=== PATIENT | male | born 1945 | race Hispanic/Latino ===

== ENCOUNTER 2018-10-02 17:51 | Emergency (ER) | payer MEDICARE ==
[~2018-10-02] VITALS: Ht 175.3 cm; Wt 87.1 kg
[2018-10-02] MEDS ORDERED: IBUPROFEN 600 MG TAB PO STA (18:33)
[2018-10-02] MEDS ORDERED: SODIUM CHLORIDE 0.9% 1000ML 1,000 ML IV ONE (19:15)
[2018-10-02] MEDS ORDERED: ACETAMINOPHEN 325 MG TAB PO ONE (20:15)
--- NOTE | 2018-10-02 20:46 | Diagnostic Imaging Report ---
EXAMINATION: CXR 1 [facility] COMPARISON: Chest x-ray 09/03/2011 INDICATION: Body aches, fever ^[id number] ^[id number] DISCUSSION: Frontal view of the chest obtained at 1918 hours. HEART AND MEDIASTINUM: The cardiomediastinal silhouette is unremarkable. There are calcified right hilar lymph nodes. LINES: None. LUNGS: The lungs are diffusely hyperinflated. No infiltrates. Mild reticulation in the base of the right lung. Calcified granuloma in the right midlung field measures 3 mm and in the base of the left lung measuring 3 mm. Calcified granuloma in the left lung measures 4 mm. These are stable. PLEURA: Thickening of the pleura in the right lateral costophrenic angle has increased. No pleural effusion or pneumothorax. BONES AND SOFT TISSUES: No focal osseous lesion. There is a stable metallic density over the lateral right upper lung field, likely in the soft tissues. IMPRESSION: Thickening of the pleura in the right lateral costophrenic angle with associated reticulation, suggestive of fibrosis. Recommend further characterization with CT of the chest on an outpatient basis. Signed by: Dr. Deanna Cantu MD on 10/02/2018 8:43 PM
[2018-10-02 21:12] VITALS: BP 119/80
== END 2018-10-02 21:21 | disposition home or self-care (01) ==
LOC: FSED 17:51
DX: R50.9 Fever, unspecified (principal); R05 Cough; J15.9 Unspecified bacterial pneumonia
CPT/HCPCS: 71045; 80053; 81003; 85025; 87400; 99284; J7030

== ENCOUNTER 2020-12-07 10:23 | Emergency (ER) | payer MEDICARE ==
[~2020-12-07] VITALS: Ht 175.3 cm; Wt 83.7 kg
[2020-12-07] MEDS ORDERED: PLAVIX75 MG PO (10:45)
[2020-12-07] MEDS ORDERED: ASPIRIN EC81 MG PO (10:45)
[2020-12-07] MEDS ORDERED: ATORVASTATIN CA20 MG PO (10:45)
[2020-12-07] MEDS ORDERED: METOPROLOL TART25 MG PO (10:45)
[2020-12-07] MEDS ORDERED: AZITHROMYCIN 500MG/NS 250 ML 250 ML IV ONE (10:55)
[2020-12-07] MEDS ORDERED: SODIUM CHLORIDE 0.9% 1000ML 1,000 ML IV STA (10:55)
[2020-12-07] MEDS ORDERED: DEXAMETHASONE SOD PHOS 10 MG/1 ML VIAL IV ONE (11:00)
[2020-12-07] MEDS ORDERED: ONDANSETRON HCL 4 MG ORAL DISINTEGRATING TAB ONE (11:08)
[2020-12-07] MEDS ORDERED: SODIUM CHLORIDE 0.9% 1000ML 1,000 ML ONE (11:08)
[2020-12-07] MEDS ORDERED: DEXAMETHASONE SOD PHOS INJ 4 MG/ML VIAL ONE (11:08)
[2020-12-07] MEDS ORDERED: ONDANSETRON HCL 4 MG ORAL DISINTEGRATING TAB PO ONE (11:22)
[2020-12-07] MEDS ORDERED: ACETAMINOPHEN 325 MG TAB PO ONE (12:48)
[2020-12-07] MEDS ORDERED: VENTOLIN HFA18 GM INH (12:54)
[2020-12-07] MEDS ORDERED: AZITHROMYCIN250 MG PO (12:54)
[2020-12-07] MEDS ORDERED: PREDNISONE20 MG PO (12:54)
[2020-12-07] MEDS ORDERED: ACETAMINOPHEN 325 MG TAB ONE (12:58)
[2020-12-07 13:12] VITALS: BP 117/62
== END 2020-12-07 13:19 | disposition home or self-care (01) ==
LOC: FSED 10:38
DX: J40 Bronchitis, not specified as acute or chronic (principal); R00.0 Tachycardia, unspecified; R51.9 Headache, unspecified; R07.0 Pain in throat; I10 Essential (primary) hypertension; E78.5 Hyperlipidemia, unspecified; K80.20 Calculus of gallbladder without cholecystitis without obstruction; Z79.02 Long term (current) use of antithrombotics/antiplatelets; Z79.82 Long term (current) use of aspirin; Z79.899 Other long term (current) drug therapy
CPT/HCPCS: 71250; 80053; 83518; 83880; 84484; 85025; 87400; 96374; 99284; J0456; J1100; J7030; Q0162; 93005

== ENCOUNTER 2022-11-15 09:03 | Emergency (ER) | payer MEDICARE ==
[~2022-11-15] VITALS: Ht 175.3 cm; Wt 82.6 kg
[~2022-11-15 09:03] MED LIST: ASPIRIN EC81 MG PO; ATORVASTATIN CA20 MG PO; AZITHROMYCIN250 MG PO; METOPROLOL TART25 MG PO; PLAVIX75 MG PO; PREDNISONE20 MG PO; VENTOLIN HFA18 GM INH
[2022-11-15] MEDS ORDERED: PREDNISONE20 MG PO (10:37)
[2022-11-15] MEDS ORDERED: PROVENTIL HFA6.7 GM INH (10:38)
[2022-11-15 10:54] VITALS: BP 101/72; PULSE 66; RESP 17; O2SAT 96
== END 2022-11-15 10:55 | disposition home or self-care (01) ==
LOC: FSED 09:15
DX: R05.9 Cough, unspecified (principal); J40 Bronchitis, not specified as acute or chronic; D64.9 Anemia, unspecified; I10 Essential (primary) hypertension; E78.5 Hyperlipidemia, unspecified; I25.10 Atherosclerotic heart disease of native coronary artery without angina pectoris; R94.31 Abnormal electrocardiogram [ECG] [EKG]; Z95.5 Presence of coronary angioplasty implant and graft
CPT/HCPCS: 71046; 83518; 87400; 93005; 99283

== ENCOUNTER 2024-01-09 16:26 | Emergency (ER) | payer MEDICARE ==
[~2024-01-09] VITALS: Ht 175.3 cm; Wt 76.7 kg
[~2024-01-09 16:26] MED LIST changes: +BENZONATATE100 MG PO; +CLARITIN10 MG PO; +FLONASE ALLERG9.9 ML INH; +MUCINEX DM ER1 EAC1 PO; +PROVENTIL HFA6.7 GM INH
[2024-01-09 16:34] VITALS: PULSE 74; RESP 18; TEMP 98.3
[2024-01-09] MEDS: BACITRACIN ZINC 0.9GM TP ONE (17:19)
[2024-01-09] MEDS: TETANUS/DIPHTHERIA TOX ADULT 0.5 ML SYR IM ONE (17:20)
[2024-01-09] MEDS: ACETAMINOPHEN 325 MG TAB PO ONE (17:20)
[2024-01-09 20:25] VITALS: BP 119/69; PULSE 74; RESP 18; TEMP 98.3; O2SAT 96
== END 2024-01-09 20:25 | disposition home or self-care (01) ==
LOC: FSED 16:29
DX: S00.83XA Contusion of other part of head, initial encounter (principal); S80.02XA Contusion of left knee, initial encounter; S80.01XA Contusion of right knee, initial encounter; R51.9 Headache, unspecified; M54.2 Cervicalgia; W01.0XXA Fall on same level from slipping, tripping and stumbling without subsequent striking against object, initial encounter; Y92.480 Sidewalk as the place of occurrence of the external cause; I10 Essential (primary) hypertension; I25.10 Atherosclerotic heart disease of native coronary artery without angina pectoris; E78.5 Hyperlipidemia, unspecified; Z95.5 Presence of coronary angioplasty implant and graft
CPT/HCPCS: 70450; 70486; 72125; 90714; 99283

== ENCOUNTER 2024-09-23 18:29 | Emergency (ER) | payer MEDICARE ==
[~2024-09-23] VITALS: Ht 175.3 cm; Wt 68.0 kg
[2024-09-23] MEDS ORDERED: DIAZEPAM5 MG PO (21:04)
[2024-09-23] MEDS: DIAZEPAM 5 MG TAB PO ONE (22:39)
[2024-09-23 22:40] VITALS: PULSE 65; RESP 15; TEMP 98.1
[2024-09-23 22:50] VITALS: BP 129/82; PULSE 65; RESP 15; TEMP 98.2; O2SAT 98
== END 2024-09-23 22:48 | disposition home or self-care (01) ==
LOC: FSED 18:34
DX: R06.02 Shortness of breath (principal); F41.9 Anxiety disorder, unspecified; I10 Essential (primary) hypertension; I25.10 Atherosclerotic heart disease of native coronary artery without angina pectoris; G20.A1 Parkinson's disease without dyskinesia, without mention of fluctuations; E78.5 Hyperlipidemia, unspecified; R94.31 Abnormal electrocardiogram [ECG] [EKG]; Z95.5 Presence of coronary angioplasty implant and graft
CPT/HCPCS: 71046; 80053; 82553; 84484; 85025; 93005; 94760; 99284

== ENCOUNTER 2024-11-24 15:42 | Emergency (ER) | payer MEDICARE ==
[~2024-11-24] VITALS: Ht 175.3 cm; Wt 68.0 kg
[~2024-11-24 15:42] MED LIST changes: +DIAZEPAM5 MG PO
[2024-11-24 15:45] VITALS: TEMP 97.8
[2024-11-24 18:00] VITALS: BP 134/81; PULSE 87; RESP 15
[2024-11-24] MEDS: LORAZEPAM INJ 2 MG/ML VIAL IV ONE (18:18)
[2024-11-24 18:29] LABS: BASOPHILS % 0.5 % (0.0-1.0); EOSINOPHILS # (AUTO) 0.1 (0.0-0.4); EOSINOPHILS % 0.8 % (0.0-6.0); HEMATOCRIT 38.8 % (38.2-49.6); HEMOGLOBIN 13.2 g/dL (14.0-18.0); LYMPHOCYTES # (AUTO) 1.8 (1.0-3.2); LYMPHOCYTES % 27.3 % (18.0-39.1); MEAN CORPUSCULAR HEMOGLOBIN 30.5 pg (28-32); MEAN CORPUSCULAR VOLUME 89.6 fL (81-99); MONOCYTES # (AUTO) 0.6 (0.2-0.8); MONOCYTES % 9.9 % (4.4-11.3); NEUTROPHILS % 61.3 % (38.7-80.0); PLATELET COUNT 159 x10e3/uL (140-360); RED BLOOD COUNT 4.33 x10e6/uL (4.3-5.7); RED CELL DISTRIBUTION WIDTH 13.5 % (11.7-14.4); WHITE BLOOD COUNT 6.44 x10e3/uL (4.8-10.8)
[2024-11-24 18:43] LABS: ALBUMIN 4.2 g/dL (3.5-5.0); ALBUMIN/GLOBULIN RATIO 1.4 (0.8-2.0); ANION GAP 15.7 mmol/L (8-16); CALCIUM 9.9 mg/dL (8.4-10.2); CREATININE, SERUM 0.89 mg/dL (0.72-1.25); POTASSIUM 3.7 mmol/L (3.5-5.1); TOTAL PROTEIN 7.1 g/dL (6.5-8.1)
[2024-11-24 21:00] VITALS: PULSE 80; RESP 16; O2SAT 100
== END 2024-11-24 21:55 | disposition home or self-care (01) ==
LOC: ER 18:09
DX: R06.02 Shortness of breath (principal); F41.9 Anxiety disorder, unspecified; I10 Essential (primary) hypertension; E78.5 Hyperlipidemia, unspecified; I25.10 Atherosclerotic heart disease of native coronary artery without angina pectoris; F32.A Depression, unspecified; G20.A1 Parkinson's disease without dyskinesia, without mention of fluctuations; R94.31 Abnormal electrocardiogram [ECG] [EKG]; Z95.5 Presence of coronary angioplasty implant and graft
CPT/HCPCS: 36415; 71045; 80053; 83880; 84484; 85025; 93005; 99284; J2060

== ENCOUNTER 2024-12-27 09:54 | Emergency (ER) | payer MEDICARE ==
[~2024-12-27] VITALS: Ht 175.3 cm; Wt 68.0 kg
[2024-12-27 10:00] VITALS: TEMP 98.3
[2024-12-27] MEDS ORDERED: CEFDINIR300 MG PO (10:41)
[2024-12-27 11:58] LABS: BILIRUBIN,URINE NEGATIVE (NEGATIVE); CLARITY,URINE CLEAR (CLEAR); COLOR,URINE YELLOW (YELLOW); GLUCOSE, URINE NEGATIVE (NEGATIVE); KETONES,URINE NEGATIVE (NEGATIVE); LEUKOCYTE ESTERASE ,URINE NEGATIVE (NEGATIVE); NITRITE,URINE NEGATIVE (NEGATIVE); PH,URINE 7 (5 - 7); PROTEIN,URINE DIPSTICK NEGATIVE (NEGATIVE); URINE UROBILINOGEN 1 mg/dL (0.2 - 1)
[2024-12-27 12:00] VITALS: PULSE 103; RESP 16; O2SAT 97
[2024-12-27 12:04] LABS: BACTERIA,URINE MODERATE /HPF; EPITHELIAL CELLS,URINE FEW /LPF; RBC,URINE 21-50 /HPF (0-5); RENAL EPITHELIAL CELLS,URINE FEW; TRANSITIONAL EPI CELLS,URINE MODERATE; WBC,URINE (MAN) 0-5 /HPF (0-5)
== END 2024-12-27 12:00 | disposition home or self-care (01) ==
LOC: ER 10:06
DX: R33.9 Retention of urine, unspecified (principal); R10.30 Lower abdominal pain, unspecified; I10 Essential (primary) hypertension; E78.5 Hyperlipidemia, unspecified; I25.10 Atherosclerotic heart disease of native coronary artery without angina pectoris; G20.A1 Parkinson's disease without dyskinesia, without mention of fluctuations; F41.9 Anxiety disorder, unspecified; F32.A Depression, unspecified; Z95.5 Presence of coronary angioplasty implant and graft
CPT/HCPCS: 51700; 51798; 81001; 87086; 99283

== ENCOUNTER 2025-01-01 19:59 | Inpatient (IN) | payer MEDICARE ==
[~2025-01-01] VITALS: Ht 167.6 cm; Wt 63.5 kg
[~2025-01-01 19:59] MED LIST changes: +CEFDINIR300 MG PO
[2025-01-01 20:10] VITALS: TEMP 97.4
[2025-01-01] MEDS: SODIUM CHLORIDE 0.9% 1000ML 1,000 ML IV STA (20:28)
[2025-01-01] MEDS: ACETAMINOPHEN 325 MG TAB PO STA (20:29)
[2025-01-01 20:36] LABS: BASOPHILS % 0.1 % (0.0-1.0); HEMATOCRIT 34.7 % (38.2-49.6); HEMOGLOBIN 11.8 g/dL (14.0-18.0); LYMPHOCYTES # (AUTO) 0.8 (1.0-3.2); LYMPHOCYTES % 4.7 % (18.0-39.1); MEAN CORPUSCULAR HEMOGLOBIN 30.6 pg (28-32); MEAN CORPUSCULAR VOLUME 90.1 fL (81-99); MONOCYTES # (AUTO) 1.6 (0.2-0.8); MONOCYTES % 9.3 % (4.4-11.3); NEUTROPHILS # (AUTO) 13.4 (2.1-6.9); NEUTROPHILS % 79.4 % (38.7-80.0); PLATELET COUNT 132 x10e3/uL (140-360); RED BLOOD COUNT 3.85 x10e6/uL (4.3-5.7); RED CELL DISTRIBUTION WIDTH 13.2 % (11.7-14.4); WHITE BLOOD COUNT 16.86 x10e3/uL (4.8-10.8)
[2025-01-01 20:51] LABS: ALBUMIN 3.3 g/dL (3.5-5.0); ALBUMIN/GLOBULIN RATIO 1.3 (0.8-2.0); ANION GAP 12.2 mmol/L (8-16); BILIRUBIN,TOTAL 1.7 mg/dL (0.2-1.2); CALCIUM 8.5 mg/dL (8.4-10.2); CREATININE, SERUM 0.8 mg/dL (0.72-1.25); TOTAL PROTEIN 5.8 g/dL (6.5-8.1)
[2025-01-01 20:56] LABS: TROPONIN I 0.005 ng/mL (0-0.300)
[2025-01-01 20:57] LABS: POTASSIUM 3.2 mmol/L (3.5-5.1)
[2025-01-01] MEDS ORDERED: SODIUM CHLORIDE 0.9% 1000ML 2,000 ML ONE (22:23)
[2025-01-01] MEDS: SODIUM CHLORIDE 0.9% 1000ML 2,000 ML IV STA (22:29)
[2025-01-01 22:48] LABS: BILIRUBIN,URINE NEGATIVE (NEGATIVE); CLARITY,URINE CLEAR (CLEAR); COLOR,URINE YELLOW (YELLOW); GLUCOSE, URINE NEGATIVE (NEGATIVE); KETONES,URINE NEGATIVE (NEGATIVE); LEUKOCYTE ESTERASE ,URINE SMALL (NEGATIVE); NITRITE,URINE NEGATIVE (NEGATIVE); PH,URINE 6 (5 - 7); PROTEIN,URINE DIPSTICK 1+ (NEGATIVE); URINE UROBILINOGEN 0.2 mg/dL (0.2 - 1)
[2025-01-01] MEDS ORDERED: Morphine 2mg Syringe 2 MG/ML SYR IV PRN (23:00)
[2025-01-01] MEDS ORDERED: ONDANSETRON HCL INJ 2MG/ML 2ML 2 MG/ML VIAL IV PRN (23:00)
[2025-01-01 23:05] LABS: BACTERIA,URINE MANY /HPF; WBC,URINE (MAN) 21-50 /HPF (0-5)
[2025-01-01 23:06] LABS: EPITHELIAL CELLS,URINE FEW /LPF
[2025-01-01 23:55] VITALS: BP 91/50; PULSE 88; RESP 18; TEMP 98.5; O2SAT 100
[2025-01-02] VITALS (24 sets, daily range): BP systolic 82–119; BP diastolic 48–68; PULSE 77–103; RESP 14–22; TEMP 98.2–101.2; O2SAT 95–100
[2025-01-02] MEDS: SODIUM CHLORIDE 0.9% 1000ML 1,000 ML IV SCH (01:09)
[2025-01-02 06:49] LABS: BASOPHILS % 0.1 % (0.0-1.0); HEMATOCRIT 31.6 % (38.2-49.6); HEMOGLOBIN 10.8 g/dL (14.0-18.0); LYMPHOCYTES # (AUTO) 0.8 (1.0-3.2); LYMPHOCYTES % 5.2 % (18.0-39.1); MEAN CORPUSCULAR HEMOGLOBIN 30.9 pg (28-32); MEAN CORPUSCULAR HGB CONC 34.2 g/dL (31-35); MEAN CORPUSCULAR VOLUME 90.3 fL (81-99); MONOCYTES # (AUTO) 1.6 (0.2-0.8); MONOCYTES % 10.1 % (4.4-11.3); NEUTROPHILS # (AUTO) 11.7 (2.1-6.9); PLATELET COUNT 118 x10e3/uL (140-360); RED CELL DISTRIBUTION WIDTH 13.6 % (11.7-14.4); WHITE BLOOD COUNT 15.78 x10e3/uL (4.8-10.8)
[2025-01-02 06:54] LABS: ALBUMIN 2.8 g/dL (3.5-5.0); ALBUMIN/GLOBULIN RATIO 1.3 (0.8-2.0); ANION GAP 10.4 mmol/L (8-16); BILIRUBIN,TOTAL 1.6 mg/dL (0.2-1.2); CALCIUM 7.8 mg/dL (8.4-10.2); CREATININE, SERUM 0.69 mg/dL (0.72-1.25); POTASSIUM 3.4 mmol/L (3.5-5.1); TOTAL PROTEIN 4.9 g/dL (6.5-8.1)
[2025-01-02 07:22] LABS: TROPONIN I 0.009 ng/mL (0-0.300)
[2025-01-02] MEDS ORDERED: LACTATED RINGER'S 1,000 ML INJ ONE (08:15)
[2025-01-02] MEDS: CLOPIDOGREL BISULFATE 75 MG TAB PO SCH (08:37)
[2025-01-02] MEDS: LACTATED RINGER'S 1,000 ML INJ ONE (08:37)
[2025-01-02 11:17] LABS: LYMPHOCYTES % (MANUAL) 5 % (19-48); MONOCYTES % (MANUAL) 5 % (3.4-9.0); NEUTROPHILS % (MANUAL) 90 % (40-74); PLATELET ESTIMATE SLIGHTLY DECREASED; PLATELET MORPHOLOGY COMMENT NORMAL; RBC MORPHOLOGY COMMENT NORMAL
[2025-01-02 16:05] LABS: TROPONIN I 0.005 ng/mL (0-0.300)
[2025-01-02] MEDS ORDERED: DIPHENHYDRAMINE HCL 25 MG CAP PO PRN (16:30)
[2025-01-02] MEDS ORDERED: HYDRALAZINE HCL 20 MG/ML VIAL IV PRN (16:30)
[2025-01-02] MEDS ORDERED: ALBUTEROL/IPRATROPIUM 3 ML NEB NEB PRN (16:30)
[2025-01-02] MEDS ORDERED: ACETAMINOPHEN 325 MG TAB PO PRN (16:30)
[2025-01-02] MEDS ORDERED: DEXTROSE 50% SYRINGE 50 ML IV PRN (16:30)
[2025-01-02] MEDS ORDERED: BENZONATATE 100 MG CAP PO PRN (16:30)
[2025-01-02] MEDS ORDERED: LIDOCAINE 4% PATCH TP PRN (16:30)
[2025-01-02] MEDS: ENOXAPARIN SOD INJ 40 MG/0.4 ML SYR SC SCH (17:14)
[2025-01-02] MEDS: ACETAMINOPHEN 325 MG TAB PO PRN (18:36)
[2025-01-02] MEDS: ATORVASTATIN 20 MG TAB PO SCH (20:10)
[2025-01-02] MEDS: MELATONIN 5 MG TABLET PO PRN (21:03)
[2025-01-03] VITALS (8 sets, daily range): BP systolic 103–137; BP diastolic 3–80; PULSE 70–92; RESP 13–20; TEMP 97.7–98.5; O2SAT 96–100
[2025-01-03 06:33] LABS: BASOPHILS # (AUTO) 0.1 (0.0-0.1); BASOPHILS % 0.4 % (0.0-1.0); EOSINOPHILS # (AUTO) 0.1 (0.0-0.4); EOSINOPHILS % 0.6 % (0.0-6.0); HEMATOCRIT 36.6 % (38.2-49.6); HEMOGLOBIN 12.1 g/dL (14.0-18.0); LYMPHOCYTES # (AUTO) 1.6 (1.0-3.2); LYMPHOCYTES % 8.6 % (18.0-39.1); MEAN CORPUSCULAR HEMOGLOBIN 30.6 pg (28-32); MEAN CORPUSCULAR HGB CONC 33.1 g/dL (31-35); MEAN CORPUSCULAR VOLUME 92.4 fL (81-99); MONOCYTES # (AUTO) 1.7 (0.2-0.8); MONOCYTES % 9.1 % (4.4-11.3); NEUTROPHILS # (AUTO) 14.2 (2.1-6.9); NEUTROPHILS % 75.5 % (38.7-80.0); PLATELET COUNT 141 x10e3/uL (140-360); RED BLOOD COUNT 3.96 x10e6/uL (4.3-5.7); RED CELL DISTRIBUTION WIDTH 13.4 % (11.7-14.4); WHITE BLOOD COUNT 18.75 x10e3/uL (4.8-10.8)
[2025-01-03 07:02] LABS: ANION GAP 12.1 mmol/L (8-16); CALCIUM 8.4 mg/dL (8.4-10.2); CREATININE, SERUM 0.71 mg/dL (0.72-1.25)
[2025-01-03 07:08] LABS: POTASSIUM 3.1 mmol/L (3.5-5.1)
[2025-01-03] MEDS: PANTOPRAZOLE SOD 40 MG TABEC PO SCH ×2 (08:38→21:10)
[2025-01-03 10:51] LABS: EOSINOPHILS % (MANUAL) 2 % (0-7); LYMPHOCYTES % (MANUAL) 6 % (19-48); MONOCYTES % (MANUAL) 3 % (3.4-9.0); NEUTROPHILS % (MANUAL) 89 % (40-74)
[2025-01-03 10:52] LABS: PLATELET ESTIMATE SLIGHTLY DECREASED; PLATELET MORPHOLOGY COMMENT NORMAL; RBC MORPHOLOGY COMMENT NORMAL
[2025-01-03] MEDS ORDERED: DIAZEPAM 5 MG TAB PO PRN (13:45)
[2025-01-03] MEDS ORDERED: SINEMET 25-1001 EACH PO (19:37)
[2025-01-03] MEDS ORDERED: OMEPRAZOLE40 MG PO (19:39)
[2025-01-03] MEDS: CARBIDOPA/LEVODOPA 25/100 TAB PO SCH (21:11)
[2025-01-04] VITALS (8 sets, daily range): BP systolic 99–129; BP diastolic 63–76; PULSE 72–99; RESP 16–19; TEMP 97.7–98.8; O2SAT 97–100
[2025-01-04] MEDS: SIMETHICONE 80 MG CHEW PO PRN (03:06)
[2025-01-04 05:50] LABS: BASOPHILS # (AUTO) 0.1 (0.0-0.1); BASOPHILS % 0.4 % (0.0-1.0); EOSINOPHILS # (AUTO) 0.1 (0.0-0.4); HEMATOCRIT 31.6 % (38.2-49.6); HEMOGLOBIN 10.6 g/dL (14.0-18.0); LYMPHOCYTES % 7.5 % (18.0-39.1); MEAN CORPUSCULAR HEMOGLOBIN 30.2 pg (28-32); MEAN CORPUSCULAR HGB CONC 33.5 g/dL (31-35); MONOCYTES # (AUTO) 1.4 (0.2-0.8); MONOCYTES % 10.6 % (4.4-11.3); NEUTROPHILS # (AUTO) 10.5 (2.1-6.9); PLATELET COUNT 141 x10e3/uL (140-360); RED BLOOD COUNT 3.51 x10e6/uL (4.3-5.7); RED CELL DISTRIBUTION WIDTH 13.5 % (11.7-14.4)
[2025-01-04 06:03] LABS: ANION GAP 11.8 mmol/L (8-16); CALCIUM 8.1 mg/dL (8.4-10.2); CREATININE, SERUM 0.64 mg/dL (0.72-1.25)
[2025-01-04 06:06] LABS: POTASSIUM 2.8 mmol/L (3.5-5.1)
[2025-01-04] MEDS: POTASSIUM CHLORIDE 20 MEQ TAB CR PO PRN (07:13)
[2025-01-04] MEDS: ASPIRIN 81 MG ENTERIC COATED PO SCH (08:13)
[2025-01-04] MEDS: POTASSIUM CHLORIDE 10MEQ EA PO ONE (11:43)
[2025-01-04] MEDS: FLUTICASONE PROPIONATE NASAL SPRAY NS SCH (17:00)
[2025-01-05] VITALS (10 sets, daily range): BP systolic 118–126; BP diastolic 67–78; PULSE 69–87; RESP 16–20; TEMP 97.6–98.8; O2SAT 95–100
[2025-01-05 07:07] LABS: BASOPHILS % 0.4 % (0.0-1.0); EOSINOPHILS # (AUTO) 0.1 (0.0-0.4); EOSINOPHILS % 1.2 % (0.0-6.0); HEMATOCRIT 34.7 % (38.2-49.6); HEMOGLOBIN 11.6 g/dL (14.0-18.0); LYMPHOCYTES # (AUTO) 1.2 (1.0-3.2); LYMPHOCYTES % 13.6 % (18.0-39.1); MEAN CORPUSCULAR HEMOGLOBIN 30.5 pg (28-32); MEAN CORPUSCULAR HGB CONC 33.4 g/dL (31-35); MEAN CORPUSCULAR VOLUME 91.3 fL (81-99); MONOCYTES # (AUTO) 1.1 (0.2-0.8); MONOCYTES % 13.4 % (4.4-11.3); NEUTROPHILS % 70.7 % (38.7-80.0); PLATELET COUNT 139 x10e3/uL (140-360); RED CELL DISTRIBUTION WIDTH 13.7 % (11.7-14.4); WHITE BLOOD COUNT 8.48 x10e3/uL (4.8-10.8)
[2025-01-05 07:34] LABS: ALBUMIN 2.7 g/dL (3.5-5.0); ANION GAP 10.6 mmol/L (8-16); BILIRUBIN,TOTAL 1.1 mg/dL (0.2-1.2); CALCIUM 8.1 mg/dL (8.4-10.2); CREATININE, SERUM 0.61 mg/dL (0.72-1.25); POTASSIUM 3.6 mmol/L (3.5-5.1); TOTAL PROTEIN 5.4 g/dL (6.5-8.1)
[2025-01-05] MEDS: DOCUSATE SODIUM 100 MG CAP PO PRN (20:46)
[2025-01-06] VITALS (7 sets, daily range): BP systolic 119–141; BP diastolic 67–82; PULSE 79–98; RESP 16–20; TEMP 97.5–98.4; O2SAT 98–100
[2025-01-06 06:39] LABS: ANION GAP 12.5 mmol/L (8-16); CALCIUM 8.2 mg/dL (8.4-10.2); CREATININE, SERUM 0.68 mg/dL (0.72-1.25); POTASSIUM 3.5 mmol/L (3.5-5.1)
== END 2025-01-06 17:03 | disposition home health service (06) | DRG 698 ==
LOC: ER 20:06 → ERHOLD 22:56 → ICU 23:55 → MED/SURG 01-03 05:45
PROVIDERS: ADMIT Internal Medicine; ATTEND Internal Medicine
PROC: 3E0333Z Introduction of Anti-inflammatory into Peripheral Vein, Percutaneous Approach (ICD-10-PCS; principal; 2025-01-01)
DX: T83.511A Infection and inflammatory reaction due to indwelling urethral catheter, initial encounter (principal); A41.52 Sepsis due to Pseudomonas; R65.21 Severe sepsis with septic shock; N12 Tubulo-interstitial nephritis, not specified as acute or chronic; N39.0 Urinary tract infection, site not specified; D69.6 Thrombocytopenia, unspecified; G20.A1 Parkinson's disease without dyskinesia, without mention of fluctuations; I25.10 Atherosclerotic heart disease of native coronary artery without angina pectoris; D64.9 Anemia, unspecified; R33.8 Other retention of urine; N31.9 Neuromuscular dysfunction of bladder, unspecified; R53.81 Other malaise; Y84.6 Urinary catheterization as the cause of abnormal reaction of the patient, or of later complication, without mention of misadventure at the time of the procedure; Z79.82 Long term (current) use of aspirin; Z79.02 Long term (current) use of antithrombotics/antiplatelets; Z79.51 Long term (current) use of inhaled steroids; Z96.0 Presence of urogenital implants; Z90.49 Acquired absence of other specified parts of digestive tract; Z95.5 Presence of coronary angioplasty implant and graft
CPT/HCPCS: 36415; 71045; 80048; 80053; 81001; 82550; 83605; 83690; 83880; 84132; 84484; 85025; 87040; 87071; 87086; 87186; 87205; 93005; 93306; 94799; 99252; 99284; J1650; J2470; J2543; J7030

== ENCOUNTER 2025-02-11 13:41 | Emergency (ER) | payer MEDICARE ==
[~2025-02-11] VITALS: Ht 175.3 cm; Wt 63.5 kg
[~2025-02-11 13:41] MED LIST changes: +OMEPRAZOLE40 MG PO; +SINEMET 25-1001 EACH PO
[2025-02-11 14:53] LABS: BASOPHILS % 0.3 % (0.0-1.0); EOSINOPHILS % 0.3 % (0.0-6.0); LYMPHOCYTES % 18.6 % (18.0-39.1); MONOCYTES % 9.8 % (4.4-11.3); NEUTROPHILS % 70.9 % (38.7-80.0); RED CELL DISTRIBUTION WIDTH 13.3 % (11.7-14.4)
[2025-02-11] MEDS: SODIUM CHLORIDE 0.9% 1000ML 1,000 ML IV STA (14:59)
[2025-02-11 15:12] LABS: INR 1.07
[2025-02-11 15:20] LABS: EST GLOMERULAR FILTRATION RATE 91.0 ML/MIN (>=60)
[2025-02-11 15:29] LABS: CORONAVIRUS COVID-19 AG NEGATIVE (NEGATIVE)
[2025-02-11] MEDS ORDERED: IOPAMIDOL 370 MG/ML 100 ML INFUS..BTL INJ ONE (16:33)
[2025-02-11 17:17] LABS: LEUKOCYTE ESTERASE ,URINE NEGATIVE (NEGATIVE); PROTEIN,URINE DIPSTICK TRACE (NEGATIVE); URINE UROBILINOGEN 1 mg/dL (0.2 - 1)
[2025-02-11 17:38] LABS: CALCIUM OXALATE CRYSTALS,UR FEW (FEW)
[2025-02-11 18:46] VITALS: PULSE 82; RESP 20; TEMP 97.7
[2025-02-11 20:14] VITALS: BP 130/74; PULSE 90; RESP 19; TEMP 97.9; O2SAT 100
== END 2025-02-11 20:05 | disposition home or self-care (01) ==
LOC: ER 14:38
DX: R06.02 Shortness of breath (principal); R05.9 Cough, unspecified; I10 Essential (primary) hypertension; E78.5 Hyperlipidemia, unspecified; I25.10 Atherosclerotic heart disease of native coronary artery without angina pectoris; F41.9 Anxiety disorder, unspecified; F32.A Depression, unspecified; Z11.52 Encounter for screening for COVID-19; R94.31 Abnormal electrocardiogram [ECG] [EKG]; Z79.01 Long term (current) use of anticoagulants; Z95.5 Presence of coronary angioplasty implant and graft
CPT/HCPCS: 36415; 71045; 71260; 80053; 81001; 82550; 83735; 83880; 84484; 85025; 85379; 85610; 85730; 87040; 87086; 87186; 87428; 93005; 99285; J7030; Q9967

== ENCOUNTER 2025-02-18 12:06 | Emergency (ER) | payer MEDICARE ==
[~2025-02-18] VITALS: Ht 175.3 cm; Wt 57.6 kg
[2025-02-18 12:10] VITALS: PULSE 72; RESP 22; TEMP 97.7
[2025-02-18] MEDS ORDERED: SODIUM CHLORIDE 0.9% 1000ML 1,000 ML ONE (12:31)
[2025-02-18] MEDS: SODIUM CHLORIDE 0.9% 1000ML 1,000 ML IV ONE (12:46)
[2025-02-18] MEDS: LORAZEPAM INJ 2 MG/ML VIAL IV ONE (14:02)
[2025-02-18 14:24] VITALS: BP 125/65; PULSE 96; RESP 20; TEMP 97.8; O2SAT 98
== END 2025-02-18 14:23 | disposition home or self-care (01) ==
LOC: FSED 12:22
DX: R13.10 Dysphagia, unspecified (principal); F41.9 Anxiety disorder, unspecified; R53.1 Weakness; I10 Essential (primary) hypertension; I25.10 Atherosclerotic heart disease of native coronary artery without angina pectoris; E78.5 Hyperlipidemia, unspecified; F32.A Depression, unspecified; G20.A1 Parkinson's disease without dyskinesia, without mention of fluctuations; Z95.5 Presence of coronary angioplasty implant and graft
CPT/HCPCS: 70450; 71046; 80053; 81003; 83880; 84484; 85025; 99283; J2060; J7030; 80076